=== PATIENT | male | born 1955 | race Caucasian/White ===

== ENCOUNTER 2024-03-29 21:26 | Emergency (ER) | payer MEDICARE, MEDICAID, SELFPAY ==
[2024-03-29 21:29] VITALS: BP 128/75; PULSE 110; RESP 22; TEMP 36.8; O2SAT 97; BMI 21.5
--- NOTE | 2024-03-29 21:43 | XRR_ITS ---
PROCEDURE INFORMATION: Exam: XR Chest Exam date and time: 03/29/2024 9:51 PM Age: 68 years old Clinical indication: Injury or trauma; Blunt trauma (contusions or hematomas); Patient HX: SOB after fall x 3 days ago; Lt lateral rib pain; Subcutaneous emphysema (posterior lower left); Additional info: SOB after fall x 3 days ago; Lt lateral rib pain; Subcutaneous emphysema (posterior lower left) TECHNIQUE: Imaging protocol: Radiologic exam of the chest. Views: 1 view. COMPARISON: No relevant prior studies available. FINDINGS: Lungs: No definitive pulmonary consolidation. Pleural spaces: [id number] left pneumothorax. No pleural effusion. Heart/Mediastinum: The cardiomediastinal silhouette is within normal limits. Bones/joints: Acute appearing left posterior 6th through 8th rib fractures though additional rib fractures may be present. Chronic right posterolateral rib fractures. Soft tissues: Trace gas in the left chest wall. XR/XR chest 1V portable [id number] IMPRESSION: 1. [id number] left pneumothorax. 2. Acute appearing left posterior 6th through 8th rib fractures though additional rib fractures may be present. THIS REPORT CONTAINS FINDINGS THAT MAY BE CRITICAL TO PATIENT CARE. The findings were verbally communicated via telephone conference with Kell Montgomery at 11:16 PM COMPUTER REPAIR INSTRUCTOR on 03/29/2024. The findings were acknowledged and understood.
--- NOTE | 2024-03-29 21:44 | ED_ITS ---
Documented by User: SHAUNNA Darby 03/30/24 00:48 HPI - Back Pain/Injury 2 General: Chief Complaint: Back Pain/Injury Stated Complaint: left rib cage pain Time Seen by Provider: 03/29/24 21:38 Source: patient Mode of arrival: ambulatory Limitations: no limitations History of Present Illness: Patient is a nice 68-year-old male who presents to ED today with a complaint of left rib pain. Patient states 3 days ago he fell and struck the left side of his chest on a coffee table. Patient states he fell due to old age . Never had any complaints of chest pain, shortness of breath, dizziness, palpitations prior to the fall. Patient feels like pain has worsened since onset. He arrives tachycardic and tachypneic. He has no other injuries or complaints at this time. MD elicited complaint: back pain and other (L rib/chest pain) Pertinent past history: recent trauma Onset (ago): day(s) Timing: constant Severity: severe Similar Symptoms Previously: No Location: left flank Radiation: none Exacerbating factors: movement Relieving factors: none Context: fall and trauma Associated symptoms: Reports no associated symptoms; Deny abdominal pain, chills, dysuria, fatigue, fever(s), nausea, syncope or vomiting Work related injury: No Related Data Allergies Allergy/AdvReac Type Severity Reaction Status Date / Time No Known Allergies Allergy Verified 03/29/24 21:37 Review of Systems 2 Const: Denies: fever(s), chills, body aches, fatigue or malaise Card: Reports: chest pain; Denies: palpitations, irregular heart rhythm, edema, swelling of feet/ankles, lightheadedness, syncope, pre-syncope, dyspnea on exertion, orthopnea, leg pain with exertion or acrocyanosis Resp: Reports: pain on inspiration; Denies: dyspnea, wheezing, hemoptysis or chest congestion GI: Denies: abdominal pain, nausea, vomiting or diarrhea : Denies: flank pain or dysuria Musc: Reports: back pain; Denies: neck pain, extremity pain, extremity swelling, joint pain or joint swelling Skin/Breast: Denies: rash Neuro: Denies: headache(s), numbness in extremities, weakness in extremities, sensory changes or dizziness Physical Exam 2 Const: COMMON NORMALS: no acute distress, average body habitus, patient oriented x3, no limitations, healthy appearing and alert GENERAL APPEARANCE: cooperative ORIENTATION/CONSCIOUSNESS: Yes awake, Yes oriented to person, Yes oriented to place and Yes oriented to time HENMT: COMMON NORMALS: normocephalic and atraumatic HEAD & SCALP: normal to inspection, normocephalic and atraumatic FACE & SINUS: normal facial exam Neck/C-Spine: COMMON NORMALS: full ROM, no lymphadenopathy and no meningeal signs Chest: OTHER: mild ecchymosis L lateral ribs; large amount of palpable subcutaneous emphysema throughout his L chest wall Resp: COMMON NORMALS: normal respiratory effort and clear to auscultation bilaterally AUSCULTATION: clear to auscultation bilaterally Cardio: COMMON NORMALS: regular rhythm RATE: tachycardic RHYTHM: regular rhythm GI: COMMON NORMALS: Normal to inspection, nondistended, normoactive bowel sounds present, Soft to palpation, non-tender, No hepatosplenomegaly present and no masses PALPATION: Yes Soft to palpation and Yes No hepatosplenomegaly present : COMMON NORMALS: Yes no CVA tenderness BLADDER/KIDNEY EXAM: Yes no CVA tenderness Back/Pelvis: COMMON NORMALS: no CVA tenderness, thoracic and lumbar spine normal to inspection and no thoracic nor lumbar tenderness Extremity: GENERAL: Yes normal exam except as noted Neuro: COMMON NORMALS: patient oriented x3, moves all extremities, no focal motor deficits, no sensory deficits noted and gait normal S ENSORIUM/ORIENTATION: Yes alert, Yes oriented to person, Yes oriented to place and Yes oriented to time MENINGEAL SIGNS: Yes no meningeal signs Course 2 ED course: Care transferred to Dr. Ley and patient will be moved out of vertical flow given the findings of his diffuse subcutaneous emphysema and abnormal CXR findings. He will be placed in trauma room [address] Ley will assume care for chest tube placement and probable trauma transfer. ES Vital Signs: Vital signs: Vital Signs Temperature 98.3 F 03/29/24 21:29 Pulse Rate 89 03/30/24 00:35 Respiratory Rate 18 03/30/24 00:35 Blood Pressure 161/105 03/30/24 00:35 Pulse Oximetry 100 03/30/24 00:35 Oxygen Delivery Me thod Nasal Cannula 03/30/24 00:35 Oxygen Flow Rate 3 03/30/24 00:35 MDM - Back Pain/Injury Labs 03/29/24 22:11 03/29/24 22:11 Radiology Impressions Chest X-Ray 03/29/24 23:30 IMPRESSION: New left chest tube in place. Decreased size of now small left pneumothorax. Laboratory Results WBC 13.31 10^3/uL (3.29-11.43) H 03/29/24 22:11 RBC 5.09 10^6/uL (3.85-5.65) 03/29/24 22:11 Hgb 15.70 g/dL (11.27-16.99) 03/29/24 22:11 Hct 44.8 % (37-53) 03/29/24 22:11 MCV 88.0 fl (82-101) 03/29/24 22:11 MCH 30.8 pg (27-33) 03/29/24 22:11 MCHC 35.0 g/dL (30-55) 03/29/24 22:11 RDW 11.8 % (12.1-15.1) L 03/29/24 22:11 Plt Count 192 10^3/cmm (157-399) 03/29/24 22:11 MPV 8.7 fL (7.4-10.4) 03/29/24 22:11 Neut % (Auto) 70.8 % 03/29/24 22:11 Lymph % (Auto) 19.4 % 03/29/24 22:11 [place] % (Auto) 7.7 % 03/29/24 22:11 Eos % (Auto) 1.0 % 03/29/24 22:11 Baso % (Auto) 0.6 % 03/29/24 22:11 Neut # (Auto) 9.42 10^3/uL (1.8-7.7) H 03/29/24 22:11 Lymph # (Auto) 2.6 10^3/uL (0.8-4.8) 03/29/24 22:11 [place] # (Auto) 1.0 10^3/uL (0.2-0.9) H 03/29/24 22:11 Eos # (Auto) 0.1 10^3/uL (0.0-0.8) 03/29/24 22:11 Baso # (Auto) 0.1 10^3/uL (0.0-0.1) 03/29/24 22:11 Nucleated RBC % (auto) 0 % 03/29/24 22:11 Nucleated RBCs # 0.0 /100WBC 03/29/24 22:11 Sodium 133 mmol/L (136-145) L 03/29/24 22:11 Potassium 4.0 mmol/L (3.5-5.1) 03/29/24 22:11 Chloride 96 mmol/L (98-107) L 03/29/24 22:11 Carbon Dioxide 23 mmol/L (22-29) 03/29/24 22:11 Anion Gap 18.0 (5-19) 03/29/24 22:11 BUN 14 mg/dL (8-23) 03/29/24 22:11 Creatinine 0.6 mg/dL (0.7-1.2) L 03/29/24 22:11 GFR Calculation 134.8 mL/min (90-130) H 03/29/24 22:11 Glucose 212 mg/dL (65-115) H 03/29/24 22:11 Calculated Osmolality 283 mOsm/kg (285-295) L 03/29/24 22:11 Calcium 9.3 mg/dL (8.5-10.5) 03/29/24 22:11 Total Bilirubin 1.2 mg/dL (0.15-1.2) 03/29/24 22:11 AST 28 U/L (0-40) 03/29/24 22:11 ALT 26 U/L (0-41) 03/29/24 22:11 Alkaline Phosphatase 115 U/L (40-130) 03/29/24 22:11 Total Protein 7.6 g/dL (6.6-8.7) 03/29/24 22:11 Albumin 3.8 g/dL (3.5-5.2) 03/29/24 22:11 Globulin 3.8 g/dL (1.3-4.6) 03/29/24 22:11 Discharge Plan Discharge Patient Disposition: Xfer Short-Term Hosp Clinical Impression: Pneumothorax, left, Multiple fractures of ribs, Subcutaneous emphysema Condition: Serious Coding Level of Care Code ED Information Resources Director for [facility] Fwd Documented by User: Bassam Ley DO 03/30/24 00:50 HPI - Back Pain/Injury 2 General: Chief Complaint: Back Pain/Injury Stated Complaint: left rib cage pain Time Seen by Provider: 03/29/24 21:38 Related Data Allergies Allergy/AdvReac Type Severity Reaction Status Date / Time No Known Allergies Allergy Verified 03/29/24 21:37 Procedures Chest Tube Chest Tube 1: Chest Tube Location: left and anterior axillary line Size of Tube (cm): 24 (macedonian) Chest Tube Prep: Yes betadine prep and sterile drapes applied Local Anesthetic: lidocaine 1% Amount of anesthesia used (mL): 8 Incision Made With: #11 blade Post Procedure: sutured to skin and sterile dressing applied Tube Drainage: other (air) Amount of initial drainage (mL): 2 Post Procedure CXR?: Yes Patient Tolerated Procedure: Yes Progress: no complications. good air return Course 2 Vital Signs: Vital signs: Vital Signs Temperature 98.3 F 03/29/24 21:29 Pulse Rate 89 03/30/24 00:35 Respiratory Rate 18 03/30/24 00:35 Blood Pressure 161/105 03/30/24 00:35 Pulse Oximetry 100 03/30/24 00:35 Oxygen Delivery Me thod Nasal Cannula 03/30/24 00:35 Oxygen Flow Rate 3 03/30/24 00:35 MDM - Back Pain/Injury Medical Decision Making This patient was originally seen by Mrs. Montgomery?FABIO Daniels? I agree with her history, evaluation, and treatment. I have seen and evaluated the patient as well. He is found to have a pneumothorax, about 30% on the left side with rib fractures 6 through 8 contiguous. Chest tube was placed without complication. Blood pressure is 160 systolic, heart rate 92, saturation 100% on 2 L. Respirations are 18. Repeat x-ray shows chest tube in place with a reduction of the size of pneumothorax down to 10% or so. We do not have any trauma services or pulmonology or chest surgery available at this facility. He is being transferred to [facility] for trauma. Further imaging can be done there if needed. Currently he is stable. Labs 03/29/24 22:11 03/29/24 22:11 Radiology Impressions Chest X-Ray 03/29/24 23:30 IMPRESSION: New left chest tube in place. Decreased size of now small left pneumothorax. Laboratory Results WBC 13.31 10^3/uL (3.29-11.43) H 03/29/24 22:11 RBC 5.09 10^6/uL (3.85-5.65) 03/29/24 22:11 Hgb 15.70 g/dL (11.27-16.99) 03/29/24 22:11 Hct 44.8 % (37-53) 03/29/24 22:11 MCV 88.0 fl (82-101) 03/29/24 22:11 MCH 30.8 pg (27-33) 03/29/24 22:11 MCHC 35.0 g/dL (30-55) 03/29/24 22:11 RDW 11.8 % (12.1-15.1) L 03/29/24 22:11 Plt Count 192 10^3/cmm (157-399) 03/29/24 22:11 MPV 8.7 fL (7.4-10.4) 03/29/24 22:11 Neut % (Auto) 70.8 % 03/29/24 22:11 Lymph % (Auto) 19.4 % 03/29/24 22:11 [place] % (Auto) 7.7 % 03/29/24 22:11 Eos % (Auto) 1.0 % 03/29/24 22:11 Baso % (Auto) 0.6 % 03/29/24 22:11 Neut # (Auto) 9.42 10^3/uL (1.8-7.7) H 03/29/24 22:11 Lymph # (Auto) 2.6 10^3/uL (0.8-4.8) 03/29/24 22:11 [place] # (Auto) 1.0 10^3/uL (0.2-0.9) H 03/29/24 22:11 Eos # (Auto) 0.1 10^3/uL (0.0-0.8) 03/29/24 22:11 Baso # (Auto) 0.1 10^3/uL (0.0-0.1) 03/29/24 22:11 Nucleated RBC % (auto) 0 % 03/29/24 22:11 Nucleated RBCs # 0.0 /100WBC 03/29/24 22:11 Sodium 133 mmol/L (136-145) L 03/29/24 22:11 Potassium 4.0 mmol/L (3.5-5.1) 03/29/24 22:11 Chloride 96 mmol/L (98-107) L 03/29/24 22:11 Carbon Dioxide 23 mmol/L (22-29) 03/29/24 22:11 Anion Gap 18.0 (5-19) 03/29/24 22:11 BUN 14 mg/dL (8-23) 03/29/24 22:11 Creatinine 0.6 mg/dL (0.7-1.2) L 03/29/24 22:11 GFR Calculation 134.8 mL/min (90-130) H 03/29/24 22:11 Glucose 212 mg/dL (65-115) H 03/29/24 22:11 Calculated Osmolality 283 mOsm/kg (285-295) L 03/29/24 22:11 Calcium 9.3 mg/dL (8.5-10.5) 03/29/24 22:11 Total Bilirubin 1.2 mg/dL (0.15-1.2) 03/29/24 22:11 AST 28 U/L (0-40) 03/29/24 22:11 ALT 26 U/L (0-41) 03/29/24 22:11 Alkaline Phosphatase 115 U/L (40-130) 03/29/24 22:11 Total Protein 7.6 g/dL (6.6-8.7) 03/29/24 22:11 Albumin 3.8 g/dL (3.5-5.2) 03/29/24 22:11 Globulin 3.8 g/dL (1.3-4.6) 03/29/24 22:11 All radiology interpretation(s) finalized by discharge Discharge Plan Discharge Patient Disposition: Xfer Short-Term Hosp Clinical Impression: Pneumothorax, left, Multiple fractures of ribs, Subcutaneous emphysema Condition: Serious Coding Level of Care Code ED Information Resources Director for Jojo Saldaña
[2024-03-29 22:16] LABS: Basophils # 0.1 10^3/uL (0.0-0.1); Basophils % 0.6 %; Eosinophils # 0.1 10^3/uL (0.0-0.8); Hematocrit 44.8 % (37-53); Lymphocytes # 2.6 10^3/uL (0.8-4.8); Lymphocytes % 19.4 %; Mean Corpuscular Hemoglobin 30.8 pg (27-33); Mean Platelet Volume 8.7 fL (7.4-10.4); Monocytes % 7.7 %; Neutrophils # 9.42 10^3/uL (1.8-7.7); Neutrophils % 70.8 %; Nucleated Red Blood Cells % 0 %; Platelet Count 192 10^3/cmm (157-399); Red Blood Count 5.09 10^6/uL (3.85-5.65); Red Cell Distribution Width 11.8 % (12.1-15.1); White Blood Count 13.31 10^3/uL (3.29-11.43)
[2024-03-29 22:35] LABS: Alanine Aminotransferase 26 U/L (0-41); Albumin Level 3.8 g/dL (3.5-5.2); Alkaline Phosphatase 115 U/L (40-130); Aspartate Amino Transferase 28 U/L (0-40); Blood Urea Nitrogen 14 mg/dL (8-23); Calcium 9.3 mg/dL (8.5-10.5); Carbon Dioxide 23 mmol/L (22-29); Chloride 96 mmol/L (98-107); Creatinine Clr Calc Pharmacy 91.2353; Globulin 3.8 g/dL (1.3-4.6); Glomerular Filtration Rate 134.8 mL/min (90-130); Glucose 212 mg/dL (65-115); Osmolality Calculated 283 mOsm/kg (285-295); Sodium 133 mmol/L (136-145); Total Bilirubin 1.2 mg/dL (0.15-1.2); Total Protein 7.6 g/dL (6.6-8.7)
[2024-03-29] MEDS: ondansetron 2 mg/ML SDV 2 mL 4 MG IVP (23:20)
[2024-03-29] MEDS: lidocaine 2% INJ 20 mL INJECTION (23:23)
[2024-03-29 23:26] VITALS: BP 159/95; PULSE 97; RESP 16; O2SAT 98
[2024-03-29 23:30] VITALS: PULSE 100; RESP 19; O2SAT 99
--- NOTE | 2024-03-29 23:30 | XRR_ITS ---
PROCEDURE INFORMATION: Exam: XR Chest Exam date and time: 03/29/2024 11:31 PM Age: 68 years old Clinical indication: Device placement; Patient HX: Lt chest tube confirmation TECHNIQUE: Imaging protocol: Radiologic exam of the chest. Views: 1 view. COMPARISON: CR (CHEST, ) 03/29/2024 9:51 PM FINDINGS: Tubes, catheters and devices: New left chest tube in place. Decreased size of now small left pneumothorax. Lungs: No pulmonary consolidation. Pleural spaces: No pleural effusion. Heart/Mediastinum: Heart size is within normal limits. Vasculature: Atherosclerotic calcifications of the aorta are noted. Bones/joints: Stable rib fractures. XR/XR chest 1V portable [id number] IMPRESSION: New left chest tube in place. Decreased size of now small left pneumothorax.
[2024-03-29 23:42] VITALS: BP 163/103; PULSE 99; RESP 18; O2SAT 99
[2024-03-29] MEDS: ketamine 100 mg/mL Inj 5 mL 70 MG IVP (23:45)
[2024-03-29] MEDS: midazolam 1 mg/mL INJ 2 mL IVP (23:45)
--- NOTE | 2024-03-29 23:46 | PC.NURSE ---
chest tube setup with suction at 2343 with settings as follows: 25 mmHg wall suction - gentle bubbling in blue chamber - verified with another RN no leaks noted in air leak meter (red section) chest tube taped to floor with foam tape foam tape applied to chest tube insertion site over xeroform dressing and gauze by MD suction tube tape to pt to keep tube secure by rn
[2024-03-29 23:50] VITALS: BP 181/110; PULSE 98; RESP 20; O2SAT 98
[2024-03-30 00:04] VITALS: BP 161/105; PULSE 93; RESP 18
[2024-03-30 00:35] VITALS: BP 161/105; PULSE 89; RESP 18; O2SAT 100
[2024-03-30 00:50] VITALS: BP 165/100; PULSE 85; RESP 18; O2SAT 99
[2024-03-30 00:54] VITALS: BP 165/100; PULSE 90; RESP 18; O2SAT 99
== END 2024-03-30 01:07 | disposition short-term general hospital (02) ==
PROVIDERS: Emergency Provider Physician Assistant
DX: J93.9 Pneumothorax, unspecified (principal); S22.42XA Multiple fractures of ribs, left side, initial encounter for closed fracture; T79.7XXA Traumatic subcutaneous emphysema, initial encounter; W19.XXXA Unspecified fall, initial encounter
CPT/HCPCS: 32551; 71045; 80053; 85025; 96374; 99285; J2250; J2405; J3490